=== PATIENT | male | born 1990 | race Caucasian/White ===

== ENCOUNTER 2018-08-03 10:17 | Emergency (ER) | payer BC ==
[~2018-08-03] VITALS: Ht 190.5 cm; Wt 124.2 kg
[2018-08-03 10:32] VITALS: BP 128/74
[2018-08-03] MEDS ORDERED: LIDOCAINE-MPF 1%, 5ML ONE (10:53)
== END 2018-08-03 11:24 | disposition home or self-care (01) ==
LOC: ED 11:14
DX: L02.01 Cutaneous abscess of face (principal); F17.200 Nicotine dependence, unspecified, uncomplicated
CPT/HCPCS: 10060; 99283